=== PATIENT | female | born 1965 | race African-American/Black ===

== ENCOUNTER 2017-04-25 07:18 | Emergency (ER) | payer MEDICAID ==
[~2017-04-25] VITALS: Ht 172.7 cm; Wt 99.8 kg
[2017-04-25] MEDS ORDERED: BENADRYL25 MG ORAL (08:02)
[2017-04-25] MEDS ORDERED: KEFLEX500 MG ORAL (08:02)
--- NOTE | 2017-04-25 08:05 | Emergency Room Report ---
History of Present Illness General Chief Complaint: Skin Rash/Abscess Source: Patient Present Illness HPI [id number] [employer] patient with overnight diffuse swelling right upper eyelid after being "bit by insect." Denies pain with eyeball movement Associated with other bites to right arm Denies fever/chills Assoc with itch Also c/o dysuria for 3 days - denies abd pain, nausea/vomiting Allergies: Coded Allergies: TETRACYCLINES (Verified Allergy, Unknown, 04/25/17) Patient History Past Medical History: none Past Surgical History: none Pertinent Family History: none Social History: Denies: alcohol use, drug use, smoking Now: No Immunizations: UTD Reviewed Nursing Documentation: PMH: Agreed, PSxH: Agreed Nursing Documentation-PMH Past Medical History: No History, Except For Hx Diabetes: Yes Review of Systems All Other Systems: negative except mentioned in HPI Physical Exam Vital Signs Date Time Temp Pulse Resp B/P Pulse Ox O2 Delivery O2 Flow Rate FiO2 04/25/17 07:27 98.2 82 20 137/83 98 Room Air Sp02 EP Interpretation: reviewed, normal General Appearance: normal inspection, well appearing, no apparent distress, alert, GCS 15, non-toxic Head: normocephalic, atraumatic Eyes: bilateral eye EOMI, bilateral eye PERRL ENT: normal ENT inspection, hearing grossly normal, normal voice Neck: normal inspection, full range of motion, supple, no bony tend Respiratory: normal inspection, lungs clear, normal breath sounds, no respiratory distress, no retraction, no wheezing Cardiovascular #1: regular rate, rhythm, no edema Gastrointestinal: normal inspection, normal bowel sounds, non tender, soft, no guarding, no hernia Genitourinary: no CVA tenderness Musculoskeletal: normal inspection, back normal, normal range of motion, Heriberto' s Sign negative Neurologic: normal inspection, alert, oriented x3, responsive, 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 No erythema. Medical Decision Making Diagnostic Impression: Primary Impression: Dysuria Additional Impression: Eye swelling, right ER Course Right eye swelling - Pre-septal cellulitis - Afebrile, no pain with EOM - unlikely orbital cellulitis - Rx keflex, benadryl Dysuria - not - Abx keflex will cover UTI for symptomatic dysuria DC home Last Vital Signs Date Time Temp Pulse Resp B/P Pulse Ox O2 Delivery O2 Flow Rate FiO2 04/25/17 07:27 98.2 82 20 137/83 98 Room Air Status: improved Disposition: HOME, SELF-CARE Condition: Improved Scripts Diphenhydramine Hcl* (BENADRYL*) 25 Mg Capsule 25 MG ORAL Q8H Y for Itching for 7 Days, #30 CAP Prov: OSWALD COLON M.D. 04/25/17 Cephalexin* (KEFLEX*) 500 Mg Capsule 500 MG ORAL Q6H for 7 Days, #28 CAP 0 Refills Prov: OSWALD COLON M.D. 04/25/17 Patient Instructions: Preseptal Cellulitis, Adult Additional Instructions: Eye swelling - Apply ice 3-4x a day to reduce swelling - Take benadryl up to 3x a day for swelling/itch - Take ALL antibiotics until finished OSWALD COLON M.D. Apr 25, 2017 08:05
[2017-04-25 08:13] LABS: APPEARANCE,URINE CLEAR; KETONES,URINE 1+ (NEGATIVE); LEUKOCYTE ESTERASE ,URINE NEGATIVE (NEGATIVE); NITRITE,URINE NEGATIVE (NEGATIVE); PH,URINE 5 (4.5-8.0); PROTEIN,URINE NEGATIVE (NEGATIVE); UROBILINOGEN,URINE NORMAL MG/DL (0.0-1.0)
[2017-04-25 08:21] LABS: BACTERIA,URINE FEW /HPF; SQUAMOUS EPITHELIAL CELL,UR FEW /LPF (NONE/OCC); WBC,URINE 0-2 /HPF (0 - 2)
[2017-04-25 08:22] LABS: MUCUS,URINE MODERATE /LPF (NONE/OCC)
[2017-04-25 08:23] VITALS: BP 155/90
== END 2017-04-25 08:26 | disposition home or self-care (01) ==
LOC: EMR 07:43
DX: R30.0 Dysuria (principal); R60.0 Localized edema; E11.9 Type 2 diabetes mellitus without complications
CPT/HCPCS: 81003; 81025; 99284

== ENCOUNTER 2019-04-19 19:34 | Emergency (ER) | payer MEDICAID ==
[~2019-04-19] VITALS: Ht 172.7 cm; Wt 108.9 kg
[~2019-04-19 19:34] MED LIST: BENADRYL25 MG ORAL; KEFLEX500 MG ORAL
[2019-04-19 19:45] VITALS: BP 117/78
--- NOTE | 2019-04-19 19:45 | NUR ---
ED Nurse Note: PT WALKED IN C/O LEFT EYE IRRITATION SINCE LAST NIGHT WITH DISCHARGE. NOTED REDNESS IN THE SCLERA, WILL CONT MONITOR.
--- NOTE | 2019-04-19 19:52 | Emergency Room Report ---
History of Present Illness General Chief Complaint: Eye Problems Source: Patient (Dayo Subramanian) Present Illness HPI 54-year-old female with no significant past medical history here complaining of left eye irritation and yellow discharge x2 days. Patient does not recall any foreign body exposure in the eye and does not recall any trauma to the eye. Complains of minor blurry vision however denies photophobia, pain, pruritus. She has not used any medication for alleviation of symptoms and does not apply eye make-up. Denies rhinorrhea, cough, facial numbness, headache, chest pain, shortness of breath, palpitation, and all other associated symptoms. (Dayo Subramanian) Allergies: Coded Allergies: TETRACYCLINES (Verified Allergy, Unknown, 04/19/19) Patient History Past Medical History: see triage record Past Surgical History: unable to obtain Pertinent Family History: none Now: No : 5 Para: 4 Immunizations: UTD Reviewed Nursing Documentation: PMH: Agreed; PSxH: Agreed (Dayo Subramanian) Nursing Documentation-PMH Past Medical History: No Stated History Hx Diabetes: No (Dayo Subramanian) Review of Systems All Other Systems: negative except mentioned in HPI (Dayo Subramanian) Physical Exam Vital Signs Date Time Temp Pulse Resp B/P (MAP) Pulse Ox O2 Delivery O2 Flow Rate FiO2 04/19/19 19:39 98.1 83 18 117/78 (91) 100 Room Air Sp02 EP Interpretation: reviewed, normal General Appearance: normal inspection, well appearing, no apparent distress Head: normocephalic, atraumatic Eyes: left eye other - Yellow discharge and conjunctivae injected; bilateral eye normal inspection, bilateral eye PERRL ENT: normal ENT inspection, normal pharynx Neck: normal inspection, full range of motion, supple Respiratory: normal inspection, chest non-tender, lungs clear, no wheezing Cardiovascular #1: normal inspection, regular rate, rhythm, no edema, no murmur Gastrointestinal: normal inspection, non tender, soft Genitourinary: no CVA tenderness Musculoskeletal: normal inspection, back normal Neurologic: normal inspection, alert, oriented x3 Psychiatric: normal inspection, judgement/insight normal Skin: no rash Lymphatic: normal inspection, no adenopathy (Dayo Subramanian) Medical Decision Making JOSE Attestation Diagnosis and treatment plans were reviewed and discussed with my supervising physician Dr. John (Dayo Subramanian) Medicare Attestation I discussed the care with Dayo GARCIA on 04/19/2019. I agree with the findings and plan as documented in the note. (Tony John M.D.) Diagnostic Impression: Primary Impression: Conjunctivitis ER Course 54-year-old female with no significant past medical history here complaining of left eye irritation and yellow discharge x2 days. Patient does not recall any foreign body exposure in the eye and does not recall any trauma to the eye. Complains of minor blurry vision however denies photophobia, pain, pruritus. She has not used any medication for alleviation of symptoms and does not apply eye make-up. Denies rhinorrhea, cough, facial numbness, headache, chest pain, shortness of breath, palpitation, and all other associated symptoms. Ddx considered but are not limited to: bacterial conjunctivitis, allergic conjunctivitis, viral conjunctivitis, periorbital cellulitis, global trauma Vital signs: are WNL, pt. is afebrile H&PE are most consistent with: Conjunctivitis ORDERS: Ofloxacin eyedrops ED INTERVENTIONS: None required at this time. DISCHARGE: At this time pt. is stable for d/c to home. Will provide printed patient care instructions, and any necessary prescriptions. Care plan and follow up instructions have been discussed with the patient prior to discharge. Follow-up with your primary care provider (Dayo Subramanian) Last Vital Signs Date Time Temp Pulse Resp B/P (MAP) Pulse Ox O2 Delivery O2 Flow Rate FiO2 04/19/19 19:45 98.1 86 18 117/78 100 Room Air (Dayo Subramanian) Disposition: HOME, SELF-CARE Condition: Stable Scripts Ofloxacin (Ofloxacin) 5 Ml Drops 2 DROP OP Q4HR for 7 Days, #5 ML Prov: Dayo Subramanian 04/19/19 Patient Instructions: Bacterial Conjunctivitis, [id number] Additional Instructions: Follow-up with a primary care provider to be referred to wind energy systems installer if needed avoid wearing eye make-up, avoid cross-contamination rubbing her eyes. Change your pillowcase Dayo Subramanian Apr 19, 2019 19:52 Tony John M.D. Apr 20, 2019 11:15
[2019-04-19] MEDS ORDERED: OFLOXACIN10 ML OP (19:53)
[2019-04-19 20:02] VITALS: BP 110/76
--- NOTE | 2019-04-19 20:02 | NUR ---
ED Nurse Note: pt cleared to be d/c per ER provider, pt discharge and aftercare instruction provided w/ prescription, pt education done via discussion and handout, pt advised to follow up with pcp or return to ed if changes in condition, vss, ambulatory w/ steady gait, left w/ all belongings.
== END 2019-04-19 20:15 | disposition home or self-care (01) ==
LOC: EMR 20:13
DX: H10.9 Unspecified conjunctivitis (principal); Z88.8 Allergy status to other drugs, medicaments and biological substances
CPT/HCPCS: 99282